=== PATIENT | male | born 2005 | race Caucasian/White ===

== ENCOUNTER 2023-11-03 12:33 | Emergency (ER) | payer MEDICAID, SELFPAY ==
[2023-11-03 12:35] VITALS: BP 148/105; PULSE 107; RESP 16; TEMP 37.1; O2SAT 98
[2023-11-03 12:44] VITALS: BP 148/105; PULSE 102; RESP 19; O2SAT 97
--- NOTE | 2023-11-03 12:56 | XRR_ITS ---
PROCEDURE INFORMATION: Exam: XR Left Forearm Exam date and time: 11/03/2023 1:04 PM Age: 18 years old Clinical indication: Injury or trauma; Other: Dog bite; Arm, lower; Left TECHNIQUE: Imaging protocol: Radiologic exam of the left forearm. Views: 2 views. COMPARISON: No relevant prior studies available. FINDINGS: Bones/joints: No fracture or dislocation. Soft tissues: Soft tissue wound corresponding to provided history. XR/XR forearm LT 2V [id number] IMPRESSION: No acute osseous findings.
[2023-11-03] MEDS: HYDROcodone-acetaminophen 5-325 mg Tablet 1 TAB PO (13:06)
--- NOTE | 2023-11-03 13:16 | ED_ITS ---
HPI - Animal Bite 2 General: Chief Complaint: Animal Bite Stated Complaint: LEFT FOREARM LACERATION S/P ANIMAL BITE Time Seen by Provider: 11/03/23 12:55 Source: patient History of Present Illness: Patient presents to the emergency department with a history of sustaining a unprovoked dog attack just prior to arrival. He states that it was a neighbor that lives approximately 3-4 houses down from his domicile and he was walking along the dog proceeded to aggressively come toward him attempt to bite him on his right upper leg and then moved to his left forearm. The dog's preparation supervisor freezing was able to get the dog off of him but not before he sustained 2 large puncture wounds to his left forearm. No other injuries at this point. The dog is a pet of the neighbor and can be observed. Police were on scene and filed a report. The patient is unaware of his last tetanus shot and is otherwise in good health. He is right-handed. MD complaint: animal bite Animal: dog Description of animal: household pet Mechanism: bite Associated symptoms: Deny chills or fever(s) Review of Systems 2 Const: Denies: fever(s) or chills Card: Denies: chest pain or palpitations Resp: Denies: dyspnea, productive cough or non-productive cough GI: Denies: abdominal pain, nausea or vomiting Musc: Reports: extremity pain; Denies: neck pain or extremity swelling Skin/Breast: Denies: rash Neuro: Denies: numbness in extremities or weakness in extremities Physical Exam 2 Narrative: EXAM NARRATIVE: Very anxious individual but he is alert and cooperative. Const: COMMON NORMALS: average body habitus, patient oriented x3, healthy appearing and alert GENERAL APPEARANCE: cooperative and anxious HENMT: COMMON NORMALS: normocephalic, atraumatic and Normal nasal mucous membranes and turbinates present HEAD & SCALP: normocephalic and atraumatic NOSE: Normal nasal mucous membranes and turbinates present Eye: COMMON NORMALS: Equal, round and reactive pupils present, EOMs intact bilaterally and conjunctivae normal CONJUNCTIVA: Yes conjunctivae normal P UPIL: Yes Equal, round and reactive pupils present Neck/C-Spine: COMMON NORMALS: full ROM and no lymphadenopathy Chest: COMMONS NORMALS: normal inspection of the chest Resp: COMMON NORMALS: normal respiratory effort, No retractions, No use of accessory muscles and clear to auscultation bilaterally EFFORT & INSPECTION: Yes able to speak in complete sentences AUSCULTATION: clear to auscultation bilaterally Cardio: COMMON NORMALS: regular rate, regular rhythm, No murmurs present (Cardio) and Peripheral pulses 2+ throughout RATE: regular rate RHYTHM: r egular rhythm PERIPHERAL PULSES: Peripheral pulses 2+ throughout Extremity: COMMON NORMALS: full ROM, capillary refill normal, no calf tenderness and no pedal edema LEFT UPPER EXTREMITY: Yes lower arm (Lacerations as marked) EXTREMITY IMAGE (FRONT): 1. Laceration 1 cm 2. Abrasion EXTREMITY IMAGE (BACK): 1. Laceration 1 cm Neuro: COMMON NORMALS: patient oriented x3, moves all extremities, no focal motor deficits and no sensory deficits noted SENSORIUM/ORIENTATION: Yes alert Procedures Laceration Laceration 1: Site: upper extremity Side (If applicable): left Description: linear Depth: simple, single layer Pre-repair: irrigated extensively and deep structures intact Technique: other (2 skin wounds one 1 cm 1 0.5 cm were closed using benzoin for adhesion Steri-Strips) Course 2 Vital Signs: Vital signs: Vital Signs Temperature 98.8 F 11/03/23 12:35 Pulse Rate 102 H 11/03/23 12:44 Respiratory Rate 19 H 11/03/23 12:44 Blood Pressure 148/105 11/03/23 12:44 Pulse Oximetry 97 11/03/23 12:44 Oxygen Delivery Me thod Room Air 11/03/23 12:44 MDM - Animal Bite Medical Decision Making This patient came to our emergency department because of a dog attack that was unprovoked sustaining a bite to his left forearm and a very small abrasion to his right upper thigh. The animal is a pet of a neighbor and can be observed and police were on scene. Clinical examination revealed 2 puncture wounds 1 on the volar and 1 on the dorsal side of his mid to upper third of his left forearm. The arm was neurovascular intact. There is no active bleeding. Each laceration measures approximately 1 cm in length. X-rays were obtained which revealed no evidence of bony injury. The patient will be irrigated extensively and placed on Augmentin. The bites will be closed loosely with Steri-Strips to allow any potential drainage etc. The animal will be observable and therefore we will not initiate rabies vaccines unless indicated by animal behavior etc. Patient's course was unremarkable wounds were closed with Steri-Strips. He was given tetanus update as well as Augmentin prophylaxis. We also discussed wound care and return precautions we also discussed compartment syndrome symptoms and immediate return. Animal is observable and please report [employer] is taking part in animal follow-up for rabies risk reduction. Lab Data I reviewed the patient's lab results. Radiology Impressions Forearm X-Ray 11/03/23 12:56 IMPRESSION: No acute osseous findings. All radiology interpretation(s) finalized by discharge Discharge Plan Discharge Patient Disposition: Home Clinical Impression: Dog bite Condition: Stable Prescriptions: New diclofenac sodium 25 mg tablet,delayed release (DR/EC) 25 mg PO BID Qty: 14 0RF amoxicillin-pot clavulanate [Augmentin] 500-125 mg tablet 1 tab PO TID Qty: 15 0RF No Action No Known Home Medications Discharge Orders: Discharge ED (Routine); Ordered 11/03/23 Ordered By: Khai Thorpe Discharge Diet: Usual diet Discharge Activity: Increase activity as tolerated Patient Instructions: Animal Bite (ED), Opioid Safety, Pain Management Activity Restrictions/Additional Instructions: As we discussed there was no evidence of serious injury from the dog bite and that there was no bony involvement or injury to tendons or muscles. You should expect some local soreness and redness. If you develop increasing pain in the arm inability to move your hand or fingers numbness change in color of the hand or forearm etc. return to the emergency department immediately. You should take the antibiotics we have prescribed for the next 5 days. We have also prescribed a medication to help with any soreness. Keep the current dressing on until 48 hours have passed and then you may replace the dressing. The Steri- Strips will gradually curl up when they are ready to be removed. Animal control Police Department should follow-up regarding any need for reevaluation for rabies vaccination. Coding Level of Care Code ED [facility] Rn for Lorin Camilo
[2023-11-03] MEDS: amoxicillin-clav 875-125 mg Tablet 1 TAB PO (14:44)
[2023-11-03] MEDS: tetanus-dipt-pertussis 0.5 mL SDV IM (14:54)
[2023-11-03 15:03] VITALS: BP 135/82; PULSE 95; RESP 16; TEMP 37.1; O2SAT 98
== END 2023-11-03 15:10 | disposition home or self-care (01) ==
PROVIDERS: Emergency Provider Emergency Medicine
DX: S51.852A Open bite of left forearm, initial encounter (principal); W54.0XXA Bitten by dog, initial encounter; Z23 Encounter for immunization
CPT/HCPCS: 73090; 90471; 90715; 99283